=== PATIENT | male | born 1995 | race Caucasian/White ===

== ENCOUNTER 2018-07-28 20:48 | Emergency (ER) | payer BC, OTHER ==
[2018-07-28 21:10] VITALS: BP 115/66; PULSE 111; RESP 18; TEMP 98.4
--- NOTE | 2018-07-28 22:24 | XR ---
EXAM: XR Left Ankle Complete, 3 or More Views CLINICAL HISTORY: ITS.REASON XR Reason: Pain TECHNIQUE: Frontal, lateral and oblique views of the left ankle. COMPARISON: No relevant prior studies available. FINDINGS: Bones/joints: Incompletely assessed left fifth metatarsal fracture. Please see separately dictated foot films. Ankle is intact. Soft tissues: Unremarkable. IMPRESSION: Incompletely assessed left fifth metatarsal fracture. Please see separately dictated foot films. Ankle is intact.
--- NOTE | 2018-07-28 22:26 | XR ---
EXAM: XR Left Foot Complete, 3 or More Views CLINICAL HISTORY: ITS.REASON XR Reason: Pain TECHNIQUE: Frontal, lateral and oblique views of the left foot. COMPARISON: No relevant prior studies available. FINDINGS: Bones/joints: There is a nondisplaced midshaft fracture of the left fifth metatarsal. No dislocation. Soft tissues: Unremarkable. No radiopaque foreign body. IMPRESSION: Left fifth metatarsal fracture.
--- NOTE | 2018-07-28 22:35 | ED ---
Lower Extremity Injury HPI - General Chief Complaint: Extremity Injury, Lower Stated Complaint: Foot injury Time Seen by Provider: 07/28/18 21:35 Source: patient Mode of arrival: ambulatory Limitations: no limitations - History of Present Illness Initial Comments: 22-year-old male past medical history of cystic fibrosis presenting today for chief complaint of left foot pain. Patient states that he was helping a family member move a hot water heater, when it rolled onto his foot and onto his lower half his body. Patient denies any significant pain of the hips or knees. He states the pain is in his left foot. Especially the lateral aspect. Patient states he is able to ambulate however there is significant pain in the left lateral foot with ambulation. Patient denies any pain in the knees or hips he denies any head injury or loss of consciousness neck pain or back pain. Patient denies any significant trauma to the abdomen or chest. He denies a chest pain or shortness of breath. Remaining review of systems negative upon arrival he appears well he denies any numbness tingling or loss sensation coolness or pallor. He denies any significant swelling of the foot or ankle. Patient is concerned of fracture of the foot presented for evaluation. Remaining review of systems negative. Patient appears well in no acute distress - Related Data Allergies Allergy/AdvReac Type Severity Reaction Status Date / Time No Known Allergies Allergy Verified 07/28/18 21:10 Review of Systems ROS Statement: Those systems with pertinent positive or pertinent negative responses have been documented in the HPI. ROS Other: All systems not noted in ROS Statement are negative. Past Medical History Additional Past Medical History / Comment(s): CF, FEEDING TUBES History of Any Multi-Drug Resistant Organisms: None Reported Additional Past Surgical History / Comment(s): WRIST SURGERY Past Psychological History: No Psychological Hx Reported Smoking Status: Never smoker Past Alcohol Use History: Rare Past Drug Use History: Marijuana General Exam - General Exam Comments Initial Comments: General: The patient is awake and alert, in no distress, and does not appear acutely ill. Eye: Pupils are equal, round and reactive to light, extra-ocular movements are intact. No nystagmus. There is normal conjunctiva bilaterally. No signs of icterus. Ears, nose, mouth and throat: There are moist mucous membranes and no oral lesions. Neck: The neck is supple, there is no tenderness or JVD. there is no midline or paravertebral tenderness to palpation of the cervical spine thoracic or lumbar. Patient is able to fully range at these portions of the spine. Cardiovascular: There is a regular rate and rhythm. No murmur, rub or gallop is appreciated. Respiratory: Lungs are clear to auscultation, respirations are non-labored, breath sounds are equal. No wheezes, stridor, rales, or rhonchi. Gastrointestinal: Soft, non-distended, non-tender abdomen without masses or organomegaly noted. There is no rebound or guarding present. Musculoskeletal: upon inspection of the feet bilaterally there is no significant soft tissue swelling or ecchymosis. Patient is tender to palpation of the lateral aspect of the left foot. There is no tenderness to palpation over the Lisfranc region. There is no bruising of the arch of the forefoot. Patient is able to fully range at both hips, knees and ankles equal comparison bilaterally. Patient is able to wiggle all digits of the feet bilaterally denying discomfort of the right foot with mild discomfort of the left especially at the lateral aspect of the foot. Strength 5 of the lower extremities. Sensation intact from hip to toe, including proximal distal to injury. DP pulses equal bilaterally 2+. capillary refill less than 2 seconds. Neurological: A&O x 3. CN II-XII intact, There are no obvious motor or sensory deficits. Coordination appears grossly intact. Speech is normal. Skin: Skin is warm and dry and no rashes or lesions are noted. Psychiatric: Cooperative, appropriate mood & affect, normal judgment. Limitations: no limitations Course Vital Signs 07/28/18 21:06 Temperature 98.4 F Pulse Rate 111 H Respiratory 18 Rate Blood Pressure 115/66 O2 Sat by Pulse 99 Oximetry Medical Decision Making - Medical Decision Making well-appearing 22-year-old male presenting today for injury after hot water tank rolled onto his foot. X-ray revealed a fifth metatarsal fracture, there is no significant displacement. Patient neurovascularly intact. Patient placed in a posterior mold splint. Patient given order for crutches. There is no evidence concerning for Lisfranc injury. Patient was given nonweightbearing instructions and orthopedic surgery follow-up. Patient given [place] instructions as well as instructions to use ibuprofen and Tylenol for pain management. Patient verbalized understanding of plan. He is agreeable. Understands importance of follow-up. Patient was provided work no. Patient denied any other areas of injury. Patient appeared well denied pain medication in the emergency department. I did discuss the case reviewed imaging studies with my attending provider Dr. Balbuena who is agreeable patient's plan and discharged. Return parameters were discussed with the patient patient verbalized understanding. Patient discharged. Well denied questions at this time Disposition Clinical Impression: Fracture of fifth metatarsal bone Disposition: HOME SELF-CARE Condition: Good Instructions (If sedation given, give patient instructions): Foot Fracture in Adults (ED) Additional Instructions: Please use medication as discussed. Please follow-up with orthopedic surgery in the next week, no weight bearing on the left foot until evaluation. Please return to emergency room if the symptoms increase or worsen or for any other concerns. Is patient prescribed a controlled substance at d/c from ED?: No Referrals: Radha Strange MD [Primary Care Provider] - 1-2 days Gustavo Quiroga MD [Medical Doctor] - 1-2 days Time of Disposition: 22:35
== END 2018-07-28 22:53 | disposition home or self-care (01) ==
LOC: EC 20:48
DX: S92.355A Nondisplaced fracture of fifth metatarsal bone, left foot, initial encounter for closed fracture (principal); Z53.29 Procedure and treatment not carried out because of patient's decision for other reasons; W22.8XXA Striking against or struck by other objects, initial encounter; Y93.89 Activity, other specified; Y92.009 Unspecified place in unspecified non-institutional (private) residence as the place of occurrence of the external cause
CPT/HCPCS: 29515; 99283

== ENCOUNTER → 2023-05-06 | Outpatient (CLI) | payer OTHER ==
[2023-05-06 16:18] LABS: ALT 40 U/L (10-49); AST 20 U/L (14-35); Albumin 4.3 g/dL (3.8-4.9); Albumin/Globulin Ratio 1.79 Ratio (1.60-3.17); Alkaline Phosphatase 169 U/L (41-126); Blood Urea Nitrogen 9.5 mg/dL (9.0-27.0); Calcium 10.4 mg/dL (8.7-10.3); Carbon Dioxide 26.9 mmol/L (21.6-31.8); Chloride 100 mmol/L (96-109); Globulin 2.4 g/dL (1.6-3.3); Glucose 366 mg/dL (70-110); LDL Cholesterol,Calculated 79.7 mg/dL (0.0-131.0); Sodium 138 mmol/L (135-145); Total Bilirubin 0.4 mg/dL (0.3-1.2); Total Protein 6.7 g/dL (6.2-8.2)
[2023-05-06 19:47] LABS: Urine Creatinine 41.2 mg/dL (39.0-259.0)
== END | disposition home or self-care (01) ==
LOC: LABWHC1 08:20
PROVIDERS: ATTEND Internal Medicine Endocrinology, Diabetes & Metabolism
DX: E10.65 Type 1 diabetes mellitus with hyperglycemia (principal)
CPT/HCPCS: 36415; 80053; 80061; 82043; 82306; 82570; 83036; 84443; 84481

== ENCOUNTER 2024-08-24 11:33 | Outpatient (CLI) | payer OTHER ==
[2024-08-24 11:55] VITALS: BP 119/80; PULSE 100; RESP 16; TEMP 97.9
[2024-08-24 12:30] LABS: Basophils # (A) 0.1 k/uL (0-0.2); Basophils % (A) 1 %; Eosinophils # (A) 0.1 k/uL (0-0.7); Eosinophils % (A) 1 %; HCT 48.1 % (39.0-53.0); HGB 14.4 gm/dL (13.0-17.5); Hypochromasia Marked; Lymphocytes # (A) 1.2 k/uL (1.0-4.8); Lymphocytes % (A) 13 %; MCH 29.4 pg (25.0-35.0); MCV 97.9 fL (80.0-100.0); Mean Platelet Volume 8.7; Monocytes # (A) 0.4 k/uL (0-1.0); Monocytes % (A) 4 %; Neutrophils # (A) 7.4 k/uL (1.3-7.7); Neutrophils % (A) 81 %; Platelet Count 260 k/uL (150-450); RBC 4.91 m/uL (4.30-5.90); RDW 12.5 % (11.5-15.5); WBC 9.2 k/uL (3.8-10.6)
[2024-08-24 12:51] LABS: African American GFR (CKD) >90 (>60 ml/min/1.73 sqM); Anion Gap 14 mmol/L; Blood Urea Nitrogen 12 mg/dL (9-20); Calcium 8.5 mg/dL (8.4-10.2); Carbon Dioxide 23 mmol/L (22-30); Chloride 88 mmol/L (98-107); Non-African American GFR(CKD) >90 (>60 ml/min/1.73 sqM); Potassium 4.4 mmol/L (3.5-5.1); Sodium 125 mmol/L (137-145)
[2024-08-24 13:14] LABS: Glucose 750 mg/dL (74-99)
== END 2024-08-24 13:27 | disposition home or self-care (01) ==
LOC: PROCWHC3 11:33
PROVIDERS: ATTEND Internal Medicine
DX: E84.9 Cystic fibrosis, unspecified (principal)
CPT/HCPCS: 80048; 85025; 36592; J1642; 36591

== ENCOUNTER 2024-08-26 18:49 | Emergency (ER) | payer OTHER ==
[2024-08-26 18:55] LABS: Glucose,Whole Blood >600 mg/dL (70-110)
[2024-08-26 18:57] VITALS: TEMP 99.3
[2024-08-26 19:36] LABS: Appearance,Urine Clear (Clear); Bilirubin,Urine Negative (Negative); Blood,Urine Trace (Negative); Color,Urine Colorless; Glucose,Urine (UA) 4+ (Negative); Ketones,Urine Negative (Negative); Leukocyte Esterase,Urine Negative (Negative); Nitrite,Urine Negative (Negative); PH, Urine 5.5 (5.0-8.0); Protein,Urine Negative (Negative); RBC,Urine 5 /hpf (0-5); Specific Gravity,Urine 1.026 (1.001-1.035); Urobilinogen,Urine <2.0 mg/dL (<2.0); WBC,Urine 1 /hpf (0-5)
--- NOTE | 2024-08-26 20:25 | ED ---
General Adult HPI - General Chief complaint: Recheck/Abnormal Lab/Rx Stated complaint: possible high blood sugar Time Seen by Provider: 08/26/24 20:07 Source: patient Mode of arrival: ambulatory Limitations: no limitations - History of Present Illness Initial comments: 28-year-old male with history of cystic fibrosis and type 1 diabetes presenting with elevated blood glucose. Patient is currently being treated for pneumonia, he has a PICC line and is on cefepime. Patient had labs checked on 08/24 and it was noted he had a very high blood glucose. He then noticed labs rechecked 2 days later and his sugar was 900. He also had a low sodium and elevated LFTs. Thanks patient reports that he quite often has a very high sugar, he states that he does take his insulin but he does not really watch his blood sugar. No chest pain or difficulty breathing. - Related Data Allergies Allergy/AdvReac Type Severity Reaction Status Date / Time No Known Allergies Allergy Verified 08/26/24 18:57 Review of Systems ROS Statement: Those systems with pertinent positive or pertinent negative responses have been documented in the HPI. ROS Other: All systems not noted in ROS Statement are negative. Past Medical History Additional Past Medical History / Comment(s): CF, FEEDING TUBES History of Any Multi-Drug Resistant Organisms: None Reported Additional Past Surgical History / Comment(s): WRIST SURGERY Past Psychological History: No Psychological Hx Reported Smoking Status: Former smoker Past Alcohol Use History: None Reported Past Drug Use History: Marijuana General Exam Limitations: no limitations General appearance: alert, in no apparent distress Head exam: Present: atraumatic, normocephalic, normal inspection Eye exam: Present: normal appearance, EOMI Neck exam: Present: normal inspection. Absent: meningismus Respiratory exam: Present: rhonchi. Absent: respiratory distress, wheezes, rales, stridor Cardiovascular Exam: Present: regular rate, normal rhythm, normal heart sounds. Absent: systolic murmur, diastolic murmur, rubs, gallop, clicks Neurological exam: Present: alert, oriented X3 Psychiatric exam: Present: normal affect, normal mood Skin exam: Present: warm, dry, normal color Course Vital Signs 08/26/24 08/26/24 18:51 21:36 Temperature 99.3 F Pulse Rate 106 H 91 Respiratory 20 18 Rate Blood Pressure 123/84 108/72 O2 Sat by Pulse 100 98 Oximetry Medical Decision Making - Medical Decision Making Was pt. sent in by a medical professional or institution (, PA, ARTIFICIAL FOLIAGE ARRANGER, urgent care, hospital, or correction...) When possible be specific @ -[No] Did you speak to anyone other than the patient for history (EMS, parent, family, police, friend...)? What history was obtained from this source @ -[No] Did you review nursing and triage notes (agree or disagree)? Why? @ -[I reviewed and agree with nursing and triage notes] Were old charts reviewed (outside hosp., previous admission, EMS record, old EKG, old radiological studies, urgent care reports/EKG's, correction records)? Report findings @ -[No old charts were reviewed] Differential Diagnosis (chest pain, altered mental status, abdominal pain women, abdominal pain men, vaginal bleeding, weakness, fever, dyspnea, syncope, headache, dizziness, GI bleed, back pain, seizure, CVA, palpatations, mental health, musculoskeletal)? @ -Differential includes DKA, diabetic hyperglycemia, not an all-inclusive list EKG interpreted by me (3pts min.). @ -[As above] X-rays interpreted by me (1pt min.). @ -Chest x-ray shows bilateral central perihilar peribronchial cuffing cons istent with reactive airway disease possibly from a viral bronchiolitis. CT interpreted by me (1pt min.). @ -[None done] U/S interpreted by me (1pt. min.). @ -[None done] What testing was considered but not performed or refused? (CT, X-rays, U/S, labs)? Why? @ -[None] What meds were considered but not given or refused? Why? @ -[None] Did you discuss the management of the patient with other professionals (professionals i.e. , PA, ARTIFICIAL FOLIAGE ARRANGER, lab, RT, psych nurse, clinical social work aide, title lawyer, teacher, enforcement officer, manager of case management)? Give summary @ -[No] Was smoking cessation discussed for >3mins.? @ -[No] Was critical care preformed (if so, how long)? @ -[No] Were there social determinants of health that impacted care today? How? (Homelessness, low income, unemployed, alcoholism, drug addiction, transportation, low edu. Level, literacy, decrease access to med. care, residential, rehab)? @ -[No] Was there de-escalation of care discussed even if they declined (Discuss DNR or withdrawal of care, Hospice)? DNR status @ -[No] What co-morbidities impacted this encounter? (DM, HTN, Smoking, COPD, CAD, Cancer, CVA, ARF, Chemo, Hep., AIDS, mental health diagnosis, sleep apnea, morbid obesity)? @ -Type 1 diabetes, cystic fibrosis Was patient admitted / discharged? Hospital course, mention meds given and route, prescriptions, significant lab abnormalities, going to OR and other pertinent info. @ -28-year-old male with type 1 diabetes and cystic fibrosis presenting with chief complaint of elevated blood sugar. Patient currently being treated for pneumonia with cefepime through PICC line. He had some labs performed which showed an elevated blood sugar. He had repeat labs performed today which showed a blood sugar of 900 and he was instructed to come to the ER. Lab work here shows no leukocytosis or anemia. Initial POC glucose is over 600. Urine shows 4+ glucose and negative ketones. Anion gap is normal at 9. Patient does have transaminitis which has been ongoing. After insulin glucose has come down to 203. Patient is not in DKA. Initial lactic acid was 3.4, recheck after IV f luids is 1.1. Patient can be discharged home. He should continue his antibiotics and follow-up with his PCP. Follow-up with PCP. Report back to ER with any new or worsening symptoms. Discussed return parameters and answered all questions. Patient conveyed verbal understanding and agreed to the plan. I discussed this case in detail with my attending Dr. Kingsley Undiagnosed new problem with uncertain prognosis? @ -[No] Drug Therapy requiring intensive monitoring for toxicity (Heparin, Nitro, Insulin, Cardizem)? @ -[No] Were any procedures done? @ -[No] Diagnosis/symptom? @ -Diabetic hyperglycemia Acute, or Chronic, or Acute on Chronic? @ -Acute Uncomplicated (without systemic symptoms) or Complicated (systemic symptoms)? @ -Uncomplicated Side effects of treatment? @ -[No] Exacerbation, Progression, or Severe Exacerbation? @ -[No] - Lab Data Result diagrams: 08/26/24 20:33 08/26/24 20:33 Lab Results 08/26/24 08/26/24 08/26/24 Range/Units 18:53 18:55 20:33 WBC 10.1 (3.8-10.6) k/uL RBC 4.56 (4.30-5.90) m/uL Hgb 13.5 (13.0-17.5) gm/dL Hct 42.6 (39.0-53.0) % MCV 93.4 (80.0-100.0) fL MCH 29.6 (25.0-35.0) pg MCHC 31.7 (31.0-37.0) g/dL RDW 12.8 (11.5-15.5) % Plt Count 280 (150-450) k/uL MPV 8.8 Neutrophils % 70 % Lymphocytes % 20 % Monocytes % 5 % Eosinophils % 2 % Basophils % 1 % Neutrophils # 7.1 (1.3-7.7) k/uL Lymphocytes # 2.1 (1.0-4.8) k/uL Monocytes # 0.5 (0-1.0) k/uL Eosinophils # 0.2 (0-0.7) k/uL Basophils # 0.1 (0-0.2) k/uL Sodium (137-145) mmol/L Potassium (3.5-5.1) mmol/L Chloride (98-107) mmol/L Carbon Dioxide (22-30) mmol/L Anion Gap mmol/L BUN (9-20) mg/dL Creatinine (0.66-1.25) mg/dL Est GFR (CKD-EPI)AfAm (>60 ml/min/1.73 sqM) Est GFR (CKD-EPI)NonAf (>60 ml/min/1.73 sqM) Glucose (74-99) mg/dL POC Glucose (mg/dL) >600 H* (70-110) mg/dL POC Glu Cistern Room Working Supervisor ID [place] Jay Lactic Ac Sepsis Rflx Plasma Lactic Acid Christofer (0.7-2.0) mmol/L Calcium (8.4-10.2) mg/dL Total Bilirubin (0.2-1.3) mg/dL AST (17-59) U/L ALT (4-49) U/L Alkaline Phosphatase (38-126) U/L Total Protein (6.3-8.2) g/dL Albumin (3.5-5.0) g/dL Urine Color Colorless Urine Appearance Clear (Clear) Urine pH 5.5 (5.0-8.0) Ur Specific [place] 1.026 (1.001-1.035) Urine Protein Negative (Negative) Urine Glucose (UA) 4+ H (Negative) Urine Ketones Negative (Negative) Urine Blood Trace H (Negative) Urine Nitrite Negative (Negative) Urine Bilirubin Negative (Negative) Urine Urobilinogen <2.0 (<2.0) mg/dL Ur Leukocyte Esterase Negative (Negative) Urine RBC 5 (0-5) /hpf Urine WBC 1 (0-5) /hpf 08/26/24 08/26/24 08/26/24 Range/Units 20:33 20:33 21:11 WBC (3.8-10.6) k/uL RBC (4.30-5.90) m/uL Hgb (13.0-17.5) gm/dL Hct (39.0-53.0) % MCV (80.0-100.0) fL MCH (25.0-35.0) pg MCHC (31.0-37.0) g/dL RDW (11.5-15.5) % Plt Count (150-450) k/uL MPV Neutrophils % % Lymphocytes % % Monocytes % % Eosinophils % % Basophils % % Neutrophils # (1.3-7.7) k/uL Lymphocytes # (1.0-4.8) k/uL Monocytes # (0-1.0) k/uL Eosinophils # (0-0.7) k/uL Basophils # (0-0.2) k/uL Sodium 132 L (137-145) mmol/L Potassium 4.2 (3.5-5.1) mmol/L Chloride 94 L (98-107) mmol/L Carbon Dioxide 29 (22-30) mmol/L Anion Gap 9 mmol/L BUN 19 (9-20) mg/dL Creatinine 0.67 (0.66-1.25) mg/dL Est GFR (CKD-EPI)AfAm >90 (>60 ml/min/1.73 sqM) Est GFR (CKD-EPI)NonAf >90 (>60 ml/min/1.73 sqM) Glucose 421 H (74-99) mg/dL POC Glucose (mg/dL) (70-110) mg/dL POC Glu Cistern Room Working Supervisor ID Lactic Ac Sepsis Rflx Y Plasma Lactic Acid Christofer 3.4 H* (0.7-2.0) mmol/L Calcium 8.7 (8.4-10.2) mg/dL Total Bilirubin 0.5 (0.2-1.3) mg/dL AST 78 H (17-59) U/L ALT 115 H (4-49) U/L Alkaline Phosphatase 257 H (38-126) U/L Total Protein 6.2 L (6.3-8.2) g/dL Albumin 3.6 (3.5-5.0) g/dL Urine Color Urine Appearance (Clear) Urine pH (5.0-8.0) Ur Specific [place] (1.001-1.035) Urine Protein (Negative) Urine Glucose (UA) (Negative) Urine Ketones (Negative) Urine Blood (Negative) Urine Nitrite (Negative) Urine Bilirubin (Negative) Urine Urobilinogen (<2.0) mg/dL Ur Leukocyte Esterase (Negative) Urine RBC (0-5) /hpf Urine WBC (0-5) /hpf 08/26/24 08/26/24 Range/Units 21:16 23:03 WBC (3.8-10.6) k/uL RBC (4.30-5.90) m/uL Hgb (13.0-17.5) gm/dL Hct (39.0-53.0) % MCV (80.0-100.0) fL MCH (25.0-35.0) pg MCHC (31.0-37.0) g/dL RDW (11.5-15.5) % Plt Count (150-450) k/uL MPV Neutrophils % % Lymphocytes % % Monocytes % % Eosinophils % % Basophils % % Neutrophils # (1.3-7.7) k/uL Lymphocytes # (1.0-4.8) k/uL Monocytes # (0-1.0) k/uL Eosinophils # (0-0.7) k/uL Basophils # (0-0.2) k/uL Sodium (137-145) mmol/L Potassium (3.5-5.1) mmol/L Chloride (98-107) mmol/L Carbon Dioxide (22-30) mmol/L Anion Gap mmol/L BUN (9-20) mg/dL Creatinine (0.66-1.25) mg/dL Est GFR (CKD-EPI)AfAm (>60 ml/min/1.73 sqM) Est GFR (CKD-EPI)NonAf (>60 ml/min/1.73 sqM) Glucose (74-99) mg/dL POC Glucose (mg/dL) 203 H (70-110) mg/dL POC Glu Cistern Room Working Supervisor ID Elaina Simmons Lactic Ac Sepsis Rflx Plasma Lactic Acid Christofer 1.1 (0.7-2.0) mmol/L Calcium (8.4-10.2) mg/dL Total Bilirubin (0.2-1.3) mg/dL AST (17-59) U/L ALT (4-49) U/L Alkaline Phosphatase (38-126) U/L Total Protein (6.3-8.2) g/dL Albumin (3.5-5.0) g/dL Urine Color Urine Appearance (Clear) Urine pH (5.0-8.0) Ur Specific [place] (1.001-1.035) Urine Protein (Negative) Urine Glucose (UA) (Negative) Urine Ketones (Negative) Urine Blood (Negative) Urine Nitrite (Negative) Urine Bilirubin (Negative) Urine Urobilinogen (<2.0) mg/dL Ur Leukocyte Esterase (Negative) Urine RBC (0-5) /hpf Urine WBC (0-5) /hpf Disposition Clinical Impression: Hyperglycemia due to type 1 diabetes mellitus Disposition: HOME SELF-CARE Condition: Fair Instructions (If sedation given, give patient instructions): Managing Diabetes During Sick Days (ED), Diabetic Hyperglycemia (ED) Additional Instructions: Follow-up with your PCP. Report back to ER with any new or worsening symptoms. Stay well-hydrated and continue your antibiotics. Is patient prescribed a controlled substance at d/c from ED?: No Referrals: Radha Strange MD [Primary Care Provider] - 1-2 days Time of Disposition: 00:17
[2024-08-26] MEDS: SODIUM CHLORIDE 0.9% 1,000 ML IV ONE (20:26)
[2024-08-26] MEDS: INSULIN REGULAR 100 UNIT/ML VIAL (IV) IV ONE (20:26)
[2024-08-26 20:41] LABS: Basophils # (A) 0.1 k/uL (0-0.2); Basophils % (A) 1 %; Eosinophils # (A) 0.2 k/uL (0-0.7); Eosinophils % (A) 2 %; HCT 42.6 % (39.0-53.0); HGB 13.5 gm/dL (13.0-17.5); Lymphocytes # (A) 2.1 k/uL (1.0-4.8); Lymphocytes % (A) 20 %; MCH 29.6 pg (25.0-35.0); MCHC 31.7 g/dL (31.0-37.0); MCV 93.4 fL (80.0-100.0); Mean Platelet Volume 8.8; Monocytes # (A) 0.5 k/uL (0-1.0); Monocytes % (A) 5 %; Neutrophils # (A) 7.1 k/uL (1.3-7.7); Neutrophils % (A) 70 %; Platelet Count 280 k/uL (150-450); RBC 4.56 m/uL (4.30-5.90); RDW 12.8 % (11.5-15.5); WBC 10.1 k/uL (3.8-10.6)
[2024-08-26 20:52] LABS: ALT 115 U/L (4-49); AST 78 U/L (17-59); African American GFR (CKD) >90 (>60 ml/min/1.73 sqM); Albumin 3.6 g/dL (3.5-5.0); Alkaline Phosphatase 257 U/L (38-126); Anion Gap 9 mmol/L; Blood Urea Nitrogen 19 mg/dL (9-20); Calcium 8.7 mg/dL (8.4-10.2); Carbon Dioxide 29 mmol/L (22-30); Chloride 94 mmol/L (98-107); Glucose 421 mg/dL (74-99); Non-African American GFR(CKD) >90 (>60 ml/min/1.73 sqM); Potassium 4.2 mmol/L (3.5-5.1); Sodium 132 mmol/L (137-145); Total Bilirubin 0.5 mg/dL (0.2-1.3); Total Protein 6.2 g/dL (6.3-8.2)
--- NOTE | 2024-08-26 21:05 | XR ---
EXAMINATION TYPE: XR chest 2V DATE OF EXAM: 08/26/2024 CLINICAL INDICATION: Male, 28 years old with history of pneumonia, TECHNIQUE: Frontal and lateral views of the chest are obtained. COMPARISON: None FINDINGS: There is right sided catheter/PICC line terminating in the right atrium. There is no suspic ious peripheral focal air space opacity, pleural effusion, or pneumothorax seen. Increased central p erihilar peribronchial cuffing. The cardiac silhouette size is within normal limits. The osseous st ructures are intact. IMPRESSION: Bilateral central perihilar peribronchial cuffing consistent with reactive airway disease possibly from a viral bronchiolitis. Correlate clinically. [facility], , 08/26/2024 9:03 PM
[2024-08-26 21:17] LABS: Glucose,Whole Blood 203 mg/dL (70-110)
[2024-08-26] MEDS: CALCIUM CARBONATE 500 MG CHEWABLE PO STA (21:33)
[2024-08-26 21:37] VITALS: RESP 18
[2024-08-27 00:27] LABS: Glucose,Whole Blood 300 mg/dL (70-110)
[2024-08-27] MEDS: CALCIUM CARBONATE 500 MG CHEWABLE PO STA (00:34)
[2024-08-27 00:36] VITALS: BP 111/78; PULSE 101
== END 2024-08-27 00:36 | disposition home or self-care (01) ==
LOC: EC 18:49
DX: E10.65 Type 1 diabetes mellitus with hyperglycemia (principal); E84.9 Cystic fibrosis, unspecified; Z87.891 Personal history of nicotine dependence; Z79.4 Long term (current) use of insulin
CPT/HCPCS: 36415; 71046; 80053; 81001; 83605; 85025; 96360; 99285

== ENCOUNTER → 2024-08-26 | Outpatient (CLI) | payer OTHER ==
[2024-08-26 16:11] LABS: ALT 120 U/L (4-49); AST 187 U/L (17-59); African American GFR (CKD) >90 (>60 ml/min/1.73 sqM); Albumin 3.4 g/dL (3.5-5.0); Albumin/Globulin Ratio 1.4; Alkaline Phosphatase 277 U/L (38-126); Anion Gap 12 mmol/L; Blood Urea Nitrogen 19 mg/dL (9-20); Calcium 8.6 mg/dL (8.4-10.2); Carbon Dioxide 24 mmol/L (22-30); Chloride 87 mmol/L (98-107); Globulin 2.5 g/dL; Non-African American GFR(CKD) >90 (>60 ml/min/1.73 sqM); Potassium 4.6 mmol/L (3.5-5.1); Sodium 123 mmol/L (137-145); Total Bilirubin 0.5 mg/dL (0.2-1.3); Total Protein 5.9 g/dL (6.3-8.2)
[2024-08-26 17:04] LABS: Glucose 900 mg/dL (74-99)
== END | disposition home or self-care (01) ==
LOC: LABWHC1 14:56
DX: E84.0 Cystic fibrosis with pulmonary manifestations (principal)
CPT/HCPCS: 36415; 80053

== ENCOUNTER → 2024-09-07 | Outpatient (CLI) | payer OTHER ==
[2024-09-07 15:21] LABS: ALT 291 U/L (10-49); AST 94 U/L (14-35); Albumin 3.7 g/dL (3.8-4.9); Albumin/Globulin Ratio 1.48 Ratio (1.60-3.17); Alkaline Phosphatase 348 U/L (41-126); BUN/Creat Ratio 20.12 Ratio (12.00-20.00); Blood Urea Nitrogen 16.1 mg/dL (9.0-27.0); Calcium 9.1 mg/dL (8.7-10.3); Chloride 102 mmol/L (96-109); Globulin 2.5 g/dL (1.6-3.3); Glucose 307 mg/dL (70-110); Potassium 4.6 mmol/L (3.5-5.5); Sodium 138 mmol/L (135-145); Total Bilirubin 0.2 mg/dL (0.3-1.2); Total Protein 6.2 g/dL (6.2-8.2)
== END | disposition home or self-care (01) ==
LOC: LABWHC1 12:02
DX: E44.0 Moderate protein-calorie malnutrition (principal); E84.9 Cystic fibrosis, unspecified; R74.01 Elevation of levels of liver transaminase levels
CPT/HCPCS: 36415; 80053

== ENCOUNTER → 2024-09-28 | Outpatient (CLI) | payer OTHER ==
[2024-09-28 15:56] LABS: BUN/Creat Ratio 15.38 Ratio (12.00-20.00); Blood Urea Nitrogen 12.3 mg/dL (9.0-27.0); Carbon Dioxide 24.5 mmol/L (21.6-31.8); Chloride 102 mmol/L (96-109); Glucose 168 mg/dL (70-110); Potassium 4.4 mmol/L (3.5-5.5); Sodium 140 mmol/L (135-145)
[2024-09-28 15:57] LABS: ALT 96 U/L (10-49); AST 87 U/L (14-35); Albumin 4.6 g/dL (3.8-4.9); Albumin/Globulin Ratio 1.39 Ratio (1.60-3.17); Alkaline Phosphatase 271 U/L (41-126); Calcium 9.7 mg/dL (8.7-10.3); Globulin 3.3 g/dL (1.6-3.3); Total Bilirubin 0.2 mg/dL (0.3-1.2); Total Protein 7.9 g/dL (6.2-8.2)
== END | disposition home or self-care (01) ==
LOC: LABWHC1 09:16
PROVIDERS: ATTEND Physician Assistant
DX: R74.01 Elevation of levels of liver transaminase levels (principal); E44.0 Moderate protein-calorie malnutrition; E84.9 Cystic fibrosis, unspecified
CPT/HCPCS: 36415; 80053